=== PATIENT | male | born 1990 | race Caucasian/White ===

== ENCOUNTER 2021-03-13 16:08 | Emergency (ER) | payer MEDICAID ==
[~2021-03-13] VITALS: Ht 322.6 cm; Wt 88.0 kg
[~2021-03-13 16:08] MED LIST: CEPH500C2; IBUP-1636; SULF-165
[2021-03-13] MEDS ORDERED: NAPROXEN 375MG TABLET PO ONE (20:00)
[2021-03-13] MEDS ORDERED: NAPROXEN 500MG TABLET PO NR (20:30)
[2021-03-13 20:42] LABS: BASOPHILS % 0.5 % (0.0-2.0); EOSINOPHILS % 2.8 % (0.0-5.0); HEMATOCRIT. 41.8 % (42.0-52.0); HEMOGLOBIN. 14.4 g/dL (14.0-18.0); LYMPHOCYTES % 33.7 % (20.0-50.0); MEAN CORPUSCULAR HEMOGLOBIN 29.4 pg (28.0-32.0); MEAN CORPUSCULAR VOLUME 85.5 fL (80.0-94.0); MEAN PLATELET VOLUME 8.2 fl (7.4-10.4); MONOCYTES % 9.2 % (2.0-8.0); NEUTROPHILS % 53.8 % (40.0-76.0); PLATELET 264 x1000/uL (130-400); RED BLOOD CELL COUNT 4.89 mill/uL (4.7-6.1); RED CELL DISTRIBUTION WIDTH 13.1 % (11.6-14.6)
[2021-03-13 20:52] LABS: CHLORIDE 104 mEq/L (98-107)
[2021-03-14] MEDS ORDERED: MAGNESIUM/ALUMINUM HYDROXIDE/SIMETHICONE 30ML UDC PO ONE (00:45)
[2021-03-14 01:10] VITALS: BP 118/72
== END 2021-03-14 01:20 | disposition home or self-care (01) ==
LOC: ER 16:08
DX: R10.9 Unspecified abdominal pain (principal); R56.9 Unspecified convulsions
CPT/HCPCS: 36415; 80053; 83690; 85025; 99283; Z7610